=== PATIENT | male | born 1975 | race Caucasian/White ===

== ENCOUNTER 2021-09-25 10:11 | Outpatient (CLI) | payer BC ==
[2021-09-25 18:46] LABS: SARS-CoV-2 PCR by NAA Not Detected (NotDetected)
== END 2021-09-25 10:12 | disposition home or self-care (01) ==
LOC: CSHLAB 10:11
PROVIDERS: ATTEND Surgery
DX: Z20.822 Contact with and (suspected) exposure to COVID-19 (principal); K21.9 Gastro-esophageal reflux disease without esophagitis
CPT/HCPCS: U0003; U0005

== ENCOUNTER 2021-09-29 05:48 | Day surgery (SDC) | payer BC ==
[2021-09-25 14:10] VITALS: BMI 39.9
[2021-09-29] MEDS ORDERED: Lidocaine 1% PF 5 ML VIAL ONE (06:37)
[2021-09-29] MEDS ORDERED: Lidocaine 2% PF 100 mg/5 ml Syringe ONE (06:37)
[2021-09-29] MEDS ORDERED: PROPOFOL 40 ML ONE (06:37)
[2021-09-29] MEDS ORDERED: Lidocaine 1% MPF 2 ML VIAL ONE (06:37)
[2021-09-29] MEDS ORDERED: Fentanyl 100 MCG/2 ML VIAL ONE (07:03)
[2021-09-29] MEDS ORDERED: Midazolam HCl 2 mg/2 ml Vial ONE (07:33)
== END 2021-09-29 08:17 | disposition home or self-care (01) ==
LOC: CSHSDC 05:48
PROVIDERS: ATTEND Surgery
PROC: 0DB68ZZ Excision of Stomach, Via Natural or Artificial Opening Endoscopic (ICD-10-PCS; principal; 2021-09-29)
DX: K29.50 Unspecified chronic gastritis without bleeding (principal); K21.9 Gastro-esophageal reflux disease without esophagitis; E66.9 Obesity, unspecified; Z79.899 Other long term (current) drug therapy; I10 Essential (primary) hypertension; E78.00 Pure hypercholesterolemia, unspecified
CPT/HCPCS: 88305; 88312; J2001; J2250; J2704; J3010